=== PATIENT | male | born 1970 | race African-American/Black ===

== ENCOUNTER 2018-01-21 04:29 | Emergency (ER) | payer OTHER ==
[~2018-01-21] VITALS: Ht 188 cm; Wt 81.6 kg
[2018-01-21 04:45] VITALS: BP 184/89
[2018-01-21] MEDS ORDERED: CLIN300C8 PO (05:04)
[2018-01-21] MEDS ORDERED: HYDR-3164 PO (05:04)
--- NOTE | 2018-01-21 05:08 | PHYS DOC ---
Past Medical History Past Medical History: Other Additional Past Medical Histor: dental caries Past Surgical History: No Surgical History Additional Past Surgical Histo: LEFT LEG Alcohol Use: Occasionally Drug Use: None Adult General Chief Complaint Chief Complaint: DENTAL PROBLEM HPI HPI Patient is a 47 year old male who presents with toothache exacerbated by the cold he's had a cracked tooth there for a long time no fever Allergies Allergies Allergies Coded Allergies Type Severity Reaction Last Updated Verified Penicillins Allergy Intermediate "i dont know my mom told me i was when i was a kid" 07/19/13 No Physical Exam Physical Exam Constitutional: Well developed, well nourished, no acute distress, non-toxic appearance. [] HENT: Normocephalic, atraumatic, bilateral external ears normal, oropharynx moist, no oral exudates, nose normal. [] poor dentition cracked upper incisor no apical abscess Eyes: PERRLA, EOMI, conjunctiva normal, no discharge. [] Neck: Normal range of motion, no tenderness, supple, no stridor. [] Extremities: No tenderness, no cyanosis, no clubbing, ROM intact, no edema. [] Neurologic: Alert and oriented X 3, normal motor function, normal sensory function, no focal deficits noted. [] Psychologic: Affect normal, judgement normal, mood normal. [] Current Patient Data Vital Signs Vital Signs Date Time Temp Pulse Resp B/P (MAP) Pulse Ox O2 Delivery O2 Flow Rate FiO2 01/21/18 04:45 98.0 80 16 184/89 (120) 98 Room Air 98.0 EKG EKG [] Radiology/Procedures Radiology/Procedures [] Course & Med Decision Making Course & Med Decision Making Pertinent Labs and Imaging studies reviewed. (See chart for details) []pain control get dental f/u abx for ppx bp f/u one month Dragon Disclaimer Dragon Disclaimer This electronic medical record was generated, in whole or in part, using a voice recognition dictation system. Departure Departure Impression: Primary Impression: Elevated blood pressure reading Additional Impression: Toothache Disposition: 01 HOME, SELF-CARE Condition: STABLE Referrals: WINTER CARTAGENA MD (PCP) NON,STAFF Patient Instructions: Toothache-Brief Scripts Hydrocodone/Apap 5-325 (NORCO 5-325 TABLET) 1 Each Tablet 1-2 EACH PO PRN Q6HRS PRN for NAUSEA/VOMITING, #5 as needed for pain Prov: QAMAR GARY MD 01/21/18 Clindamycin Hcl (CLINDAMYCIN HCL) 300 Mg Capsule 1 CAP PO TID, #21 CAP Prov: QAMAR GARY MD 01/21/18 Problem Qualifiers QAMAR GARY MD Jan 21, 2018 05:08
== END 2018-01-21 05:11 | disposition home or self-care (01) ==
LOC: ER 04:29
DX: K08.89 Other specified disorders of teeth and supporting structures (principal); R03.0 Elevated blood-pressure reading, without diagnosis of hypertension; K03.81 Cracked tooth; Z88.0 Allergy status to penicillin
CPT/HCPCS: 99283

== ENCOUNTER 2019-08-21 23:23 | Emergency (ER) | payer OTHER ==
[~2019-08-21] VITALS: Ht 188 cm; Wt 83.0 kg
[~2019-08-21 23:23] MED LIST: CLIN300C8 PO; HYDR-3164 PO
--- NOTE | 2019-08-21 23:40 | PHYS DOC ---
Past Medical History Past Medical History: Other Additional Past Medical Histor: dental caries Past Surgical History: No Surgical History Additional Past Surgical Histo: LEFT LEG Smoking Status: Current Every Day Smoker Alcohol Use: Occasionally Drug Use: None General Adult EDM: Chief Complaint: DENTAL PROBLEM HPI: HPI: Patient is a 49 year old with a past medical history hypertension presents with a chief complaint of dental pain. Patient complains of posterior upper dental pain for the last several days progressively coming worse. On exam there is extensive dental decay with gum swelling. Patient denies any fevers or chills. Is also noted that patient's blood pressure was elevated greater than 200 systolic. Patient states he has not been taking his blood pressure medications. He states his blood pressure medication is in the car he does not know the name of them. Review of Systems: Review of Systems: Constitutional: Denies fever or chills. [] Eyes: Denies change in visual acuity. [] HENT: Denies nasal congestion or sore throat. [Positive dental pain] Respiratory: Denies cough or shortness of breath. [] Cardiovascular: Denies chest pain or edema. [] GI: Denies abdominal pain, nausea, vomiting, bloody stools or diarrhea. [] : Denies dysuria. [] Musculoskeletal: Denies back pain or joint pain. [] Integument: Denies rash. [] Neurologic: Denies headache, focal weakness or sensory changes. [] Endocrine: Denies polyuria or polydipsia. [] Lymphatic: Denies swollen glands. [] Psychiatric: Denies depression or anxiety. [] Heart Score: Risk Factors: Risk Factors: DM, Current or recent (<one month) smoker, HTN, HLP, family history of CAD, obesity. Risk Scores: Score 0 - 3: 2.5% MACE over next 6 weeks - Discharge Home Score 4 - 6: 20.3% MACE over next 6 weeks - Admit for Clinical Observation Score 7 - 10: 72.7% MACE over next 6 weeks - Early Invasive Strategies Allergies: Allergies: Allergies Coded Allergies Type Severity Reaction Last Updated Verified Penicillins Allergy Intermediate "i dont know my mom told me i was when i was a kid" 07/19/13 No Physical Exam: PE: Constitutional: Well developed, well nourished, no acute distress, non-toxic appearance. [] HENT: Normocephalic, atraumatic, bilateral external ears normal, oropharynx moist, no oral exudates, nose normal. [Significant dental swelling left upper posterior molar tooth 15 decayed down to the gumline periodontal swelling] Eyes: EOMI, conjunctiva normal, no discharge. [] Neck: Normal range of motion, no tenderness, supple, no stridor. [] Cardiovascular:Heart rate regular rhythm, no murmur [] Lungs & Thorax: Bilateral breath sounds clear to auscultation [] Abdomen: Bowel sounds normal, soft, no tenderness, no masses, no pulsatile masses. [] Skin: Warm, dry, no erythema, no rash. [] Back: No tenderness, no CVA tenderness. [] Extremities: No tenderness, no cyanosis, no clubbing, ROM intact, no edema. [] Neurologic: Alert and oriented X 3, normal motor function, normal sensory function, no focal deficits noted. [] Psychologic: Affect normal, judgement normal, mood normal. [] EKG: EKG: [] Radiology/Procedures: Radiology/Procedures: [] Course & Med Decision Making: Course & Med Decision Making Pertinent Labs and Imaging studies reviewed. (See chart for details) [] Patient blood pressure elevated treated with clonidine. Patient's pain treated with Ultram. Patient was discharged home on clindamycin and Ultram. Patient was given referral to [facility] school of dentistry. Negin Disclaimer: Negin Disclaimer: This electronic medical record was generated, in whole or in part, using a voice recognition dictation system. Departure Departure Impression: Primary Impression: Pain, dental Additional Impression: Dental abscess Disposition: HOME, SELF-CARE Condition: STABLE Referrals: WINTER CARTAGENA MD (PCP) Patient Instructions: Dental Pain, Hypertension Scripts Tramadol Hcl (ULTRAM) 50 Mg Tablet 1 TAB PO PRN Q6HRS PRN for pain MDD 4 Tablet(s) for 7 Days, #20 TAB 0 Refills Prov: MITCHELL OLIVER DO 08/21/19 Clindamycin Hcl (CLINDAMYCIN HCL) 300 Mg Capsule 1 CAP PO TID, #30 CAP Prov: MITCHELL OLIVER I DO 08/21/19 Justicifation of Admission Dx: Justifications for Admission: Justification of Admission Dx: N/A MITCHELL OLIVER DO Aug 21, 2019 23:40
[2019-08-21] MEDS ORDERED: CLIN300C8 PO (23:45)
[2019-08-21] MEDS ORDERED: cloNIDine HCL 0.1 MG TABLET PO ONE (23:45)
[2019-08-21] MEDS ORDERED: traMADol 50 MG TABLET PO ONE (23:45)
[2019-08-21] MEDS ORDERED: TRAM-48 PO (23:45)
[2019-08-22 00:39] VITALS: BP 176/111
== END 2019-08-21 23:45 ==
LOC: ER 23:23
DX: K04.7 Periapical abscess without sinus (principal); K08.89 Other specified disorders of teeth and supporting structures; R60.0 Localized edema; F17.200 Nicotine dependence, unspecified, uncomplicated; Z98.890 Other specified postprocedural states
CPT/HCPCS: 99283